=== PATIENT | male | born 1995 | race Caucasian/White ===

== ENCOUNTER 2021-03-04 11:57 | Emergency (ER) | payer OTHER, SELFPAY ==
[2021-03-04 12:15] VITALS: BP 140/84; PULSE 58; RESP 16; TEMP 36.4; O2SAT 99
--- NOTE | 2021-03-04 12:36 | ED.GENADULT ---
HPI - General Adult General Chief complaint: Upper Respiratory Infection Stated complaint: Congestion,Cough,Sore Throat,Headache Source: patient Mode of arrival: ambulatory Limitations: no limitations History of Present Illness HPI narrative: 25 y/o male. PMHx MDD. Presents to [facility] today with acute complaints of nasal congestion, 'scratchy' throat, as well as non-productive cough for the past 24 hours. Client reports his manifestations to have initially started after being exposed to someone with Covid 19 viral illness. No fevers. No WORLEY, focal weakness. No chest pain, dyspnea, palpitations, edema. He denies GI S/S. He is w/o additional acute c/o illness upon PE. Related Data Home Medications Medication Instructions Recorded Confirmed escitalopram oxalate [Lexapro] 20 mg PO DAILY 03/04/21 03/04/21 Allergies Allergy/AdvReac Type Severity Reaction Status Date / Time No Known Allergies Allergy Verified 03/04/21 12:34 Review of Systems Review of Systems: CONSTITUTIONAL: Denies fever, chills, sweats. EYES: Denies visual changes, redness, discharge. ENT: Positive rhinorrhea, congestion, sore throat. No otalgia. CARDIOVASCULAR: Denies chest pain, palpitations, edema. RESPIRATORY: Denies dyspnea, wheezing. Positive cough GASTROINTESTINAL: Denies abdominal pain, nausea, vomiting, diarrhea. GENITOURINARY: Denies dysuria, hematuria, abnormal discharge SKIN: Denies rash or itching. MUSCULOSKELETAL: Denies acute back pain, joint pain, or myalgia. NEUROLOGIC: Denies numbness, or focal weakness. PSYCHIATRIC: Denies anxiety or depression. All systems reviewed & are unremarkable except as noted in HPI and below Exam Narrative: GENERAL: This is a well-nourished, well-developed adult, in no apparent distress. HEAD: normocephalic, atraumatic. EYES: PERRL. Sclera clear/white. EARS: External ears normal, auditory canals clear and without drainage, TMs normal. NOSE: External nose normal. Positive Rhinorrhea, no obstruction, nares patent. THROAT: Mucous membranes moist, posterior erythematous. No exudates. NECK: Neck supple, non-tender without lymphadenopathy, masses or thyromegaly. CARDIOVASCULAR: Regular rate and rhythm without murmurs, gallops, or rubs. RESPIRATORY: Clear to auscultation. Breath sounds equal bilaterally. No wheezes, rales, or rhonchi. GASTROINTESTINAL: Abdomen soft, non-tender, nondistended. Bowel sounds are active. No guarding. SKIN: warm, intact with no suspicious lesions or rash, good texture and turgor. NEURO: Alert, active, and age appropriate. No focal neurologic deficits. EXTREMITIES: Negative. Course Course Level of Care: Express Care Visit Vital Signs Vital signs: Vital Signs Temperature 36.4 C 03/04/21 12:15 Pulse Rate 58 L 03/04/21 12:15 Respiratory Rate 16 03/04/21 12:15 Blood Pressure 140/84 03/04/21 12:15 Pulse Oximetry 99 03/04/21 12:15 Temperature 36.4 C 03/04/21 12:15 Pulse Rate 58 L 03/04/21 12:15 Respiratory Rate 16 03/04/21 12:15 Blood Pressure 140/84 03/04/21 12:15 Pulse Oximetry 99 03/04/21 12:15 Medical Decision Making [facility] Narrative Medical decision making narrative: -Viral type manifestations, in the setting of positive Covid 19 exposure in the past 24 hours. -Afebrile, non-tachycardic, appears non-toxic. -No hypoxemia or respiratory distress. -He has been tested for Covid by PCR (S/S < 72 hours). PCR sent out for additional analysis. -Quarantine until PCR testing reports are rec'd. Longer per CDC & Health Dept. guidelines with positive findings. -May resume all OTC home remedies as needed for additional symptomatic relief. Vit C/D & Zinc are especially advised. -PCP F/U when quarantine released and fever free > 24 hours. -ER W/Emergent health status changes. Pt agrees. Differential Diagnosis Differential Diagnosis: Differential Diagnosis: Consideration of the following conditions may be warranted for the present
[2021-03-05 21:02] LABS: SARS-CoV-2 RNA PCR Negative
== END 2021-03-04 12:42 | disposition home or self-care (01) ==
PROVIDERS: Emergency Provider Nurse Practitioner Adult Health
DX: B34.9 Viral infection, unspecified (principal); Z20.822 Contact with and (suspected) exposure to COVID-19; F32.9 Major depressive disorder, single episode, unspecified
CPT/HCPCS: 99213; C9803; G0463; U0003; U0005